=== PATIENT | male | born 1990 | race Caucasian/White ===

== ENCOUNTER 2016-08-30 12:36 | Emergency (ER) | payer SELFPAY ==
[2016-08-30 12:56] VITALS: BP 125/80
--- NOTE | 2016-08-30 14:11 | RAD ---
Indication: Chest pain, dyspnea. 2 views of the chest demonstrate no mediastinal shift. Heart is of normal size and configuration. Lung hollis are clear. No pneumothorax is noted. IMPRESSION: No active cardiopulmonary disease is noted.
--- NOTE | 2016-09-13 21:00 | UC ---
Ellis Gutierrez Aidan, scribed for Jacqueline Kaplan DO on 08/30/16 at 1345 . Cardiac HPI - HPI Summary HPI Summary: 25 y/o male presents to the Urgent Care with a complaint of acute, constant, moderate (7/10) CP described as a pressure that began 1 week ago. The pain frequently radiates down his left arm. Exertion and inhalation aggravates his CP. Associated symptoms include SOB. Pt denies any neck or jaw pain, dizziness, diaphoresis, nausea, vomiting, abdominal pain, sore throat, ear ache, fever, chills, MOLINA, diarrhea, or urinary symptoms. Last year, he had a similar CP and was given an ECO test, which was negative. Pt denies any h/o amphetamine use. - History of Current Complaint Chief Complaint: UCChestPain Stated Complaint: HEART PAIN/ARM Time Seen by Provider: 08/30/16 13:27 Hx Obtained From: Patient, Family/[employer] - girlfriend Onset/Duration: Sudden Onset, Lasting Weeks - 1 week, Still Present Timing: Constant Initial Severity: Moderate Current Severity: Moderate Pain Intensity: 7 Chest Pain Location: Diffuse Character: Pressure/Squeezing Aggravating: Exertion, Deep Breaths Alleviating: Nothing - unknown Associated Signs & Symptoms: Positive: Chest Pain, Anxiety, Recent Stress, SOB. Negative: Dizziness, Diaphoresis, Nausea/Vomiting, Abdominal Pain - Risk Factors Pulmonary Embolism Risk Factors: Smoking - smokes hookah 1x per week Cardiac Risk Factors: Smoking - smokes hookah 1x per week TAD Risk Factors: Smoking - hookah 1x per week - Allergy/Home Medications Allergies/Adverse Reactions: Allergies Allergy/AdvReac Type Severity Reaction Status Date / Time co 3 maxazol Allergy Severe Swelling Uncoded 08/30/16 13:00 Of Face,Lips,& Throat Home Medications: Home Medications NK [No Home Medications Reported] 08/30/16 [History Confirmed 08/30/16] PMH/Surg Hx/FS Hx/Imm Hx Previously Healthy: Yes Endocrine History Of: Denies: Diabetes, Thyroid Disease Cardiovascular History Of: Denies: Cardiac Disorders, Hypertension Respiratory History Of: Denies: COPD, Asthma GI/ History Of: Denies: Ulcer - Surgical History Surgical History: None - Family History Known Family History: Negative: Hypertension, Diabetes - Social History Occupation: Employed Full-time Lives: With Family Alcohol Use: Occasionally Substance Use Type: None Smoking Status (MU): Never Smoked Tobacco Review of Systems Constitutional: Negative Skin: Negative Eyes: Negative ENT: Negative Respiratory: Shortness Of Breath Cardiovascular: Chest Pain Gastrointestinal: Negative Genitourinary: Negative Motor: Negative Neurovascular: Negative Musculoskeletal: Negative Neurological: Negative Psychological: Negative All Other Systems Reviewed And Are Negative: Yes Physical Exam Triage Information Reviewed: Yes Appearance: Well-Appearing, No Pain Distress, Well-Nourished Vital Signs: Initial Vital Signs Temp 98.8 F 08/30/16 12:43 Pulse 76 08/30/16 12:43 Resp 16 08/30/16 12:43 BP 125/80 08/30/16 12:43 Pulse Ox 98 08/30/16 12:43 Vital Signs Reviewed: Yes Eyes: Positive: Conjunctiva Clear. Negative: Discharge ENT: Positive: Hearing grossly normal. Negative: Muffled/hoarse voice Neck exam: Normal Neck: Positive: Supple Respiratory: Positive: Lungs clear, Normal breath sounds, No respiratory distress, No accessory muscle use Cardiovascular: Positive: RRR, No Murmur Musculoskeletal: Positive: Strength Intact, ROM Intact Neurological: Positive: Alert, Muscle Tone Normal Psychological Exam: Normal Psychological: Positive: Age Appropriate Behavior Skin Exam: Normal, Other - warm, dry, normal color Diagnostics - Radiology CHEST XR Xray Interpretation: No Acute Changes - IMPRESSION: NO ACTIVE CARDIOPULMONARY DISEASE IS NOTED Radiology Interpretation Completed By: Radiologist - EKG Cardiac Rate: NL - 75 Cardiac Rhythm: Sinus: Normal - NO ST CHANGES - Assessment/Plan Course Of Treatment: This is a 25 y/o presenting with acute, constant, moderate (7/10) chest pain described as a pressure that radiates down the left arm. Associated symptoms include SOB. Sx have persisted for a week. Pt has no risk factors, normal ekg. DIscharged to home. - Clinical Impression Provider Diagnoses: chest wall pain, chest pain Discharge - Discharge Plan Condition: Stable Disposition: HOME Patient Education Materials: Chest Pain (ED), Chest Wall Pain (ED) Referrals: No Primary Care Phys,NOPCP [Primary Care Provider] - Additional Instructions: YOU WOULD LIKELY BENEFIT FROM OSTEOPATHIC MANIPULATION. WE RECOMMEND THAT YOU FIND AN OSTEOPATHIC PHYSICIAN IN YOUR AREA WHO DOES LYMPHATIC, MYOFACIAL AND VISCERAL WORK IF YOUR SYMPTOMS WORSEN OF IF YOU DEVELOP NEW ONES, YOU SHOULD GOT TO THE ED FOR RE-EVALUATION. OTHERWISE YOU SHOULD FOLLOW UP WITH A PCP IN 2-4 DAYS. FOLLOW-UP CARE: You should establish with a private physician for follow-up care IN 2-4 DAYS. If you are unable to get a timely appointment, or if you are worsening, call us or return for re-evaluation. An additional resource available to assist in finding the appropriate physician for your health care needs is the [facility]erral [facility]. You may contact them by calling [phone]. The documentation as recorded by the Ellis ramírez Aidan accurately reflects the service I personally performed and the decisions made by me, Jacqueline Kaplan DO.
== END 2016-08-30 15:09 | disposition home or self-care (01) ==
LOC: UCEAST 12:36
DX: R06.02 Shortness of breath (principal)
CPT/HCPCS: 71020; 93005; 99201; G0463